=== PATIENT | male | born 1960 | race Caucasian/White ===

== ENCOUNTER 2017-09-09 01:39 | Inpatient (IN) | payer OTHER ==
[~2017-09-09] VITALS: Ht 177.8 cm; Wt 68.0 kg
--- NOTE | 2017-09-09 07:55 | NUR ---
PRE ADMISSION NOTE PATIENT IS A 57 YR OLD MALE ADMITTED TO [facility] ON 09/09/17 TO DETOX FROM ALCOHOL. VS BP 161/91, HR 50, O2 SATS 99% T 98 PATIENT APPEARS ANXIOUS BUT COOPERATIVE WITH A SAD DEPRESSED AFFECT. PATIENT DOES NOT APPEAR INTOXICATED. WILL CONTINUE ASSESSMENT WHEN PATIENT IS ON THE FLOOR.
[2017-09-09 09:00] VITALS: BP 132/83
--- NOTE | 2017-09-09 09:00 | NUR ---
ADMISSION ASSESSMENT PATIENT IS A 57 YEAR OLD MALE ADMITTED TO [facility] ON 09/09/17 FOR A MEDICALLY SUPERVISED WITHDRAWAL FROM ALCOHOL. PATIENT HAS NO ALLERGIES, REGULAR DIET, HEIGHT IS 5'10" AND WEIGHT 150LBS ON STANDING SCALE. PATIENT WISHES TO BE FULL CODE. SKIN IS INTACT UPON INSPECTION. PATIENT REPORTS NO PERTINENT MEDICAL HISTORY, AND STATES HE DOES NOT HAVE A PCP AT THIS TIME. 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 HE DOES NOT SMOKE OR USE ILLICIT SUBSTANCES. PATIENT IS ALERT AND ORIENTED X4 WITH STEADY GAIT AND SPEECH IS SOFT. HIS AFFECT IS WORRIED AND ANXIOUS AND HE IS DIAPHORETIC WITH SLIGHT HAND TREMORS. PATIENT APPEARS MILDLY INTOXICATED UPON ADMISSION WITH A SMELL OF ALCOHOL PERMEATING FROM HIM. ADMITTING CIWA 11. HISTORY OF USE : ALCOHOL ( WINE ) 1-2 BOTTLE /DAY ( 750-1500ML ) DAILY FOR THE PAST 4 WEEKS LAST CONSUMED LAST NIGHT ( 2 BOTTLES 09/08/17. PATIENT STATES HE HAS BEEN DRINKING SINCE HIGH SCHOOL ( 32 YEARS ) BUT IT HAS GOTTEN WORSE THIS PAST YEAR AFTER HIS SON GRADUATED COLLEGE AND LEFT HOME. HE ALSO STATES HE GOT A DUI ON August WHICH HAS PROMPTED HIM TO SEEK HELP HERE AND NOW. PATIENT STATES " I AM HERE TO GET HELP WITH MY DRINKING, I NEED TO LEARN COPING SKILLS." PATIENT STATES HE HAS NEVER HAD MUCH OF A PERIOD OF SOBRIETY , MAYBE A COUPLE OF WEEKS AT LENT SOME YEARS. PATIENT STATES THAT WITHDRAWAL SYMPTOMS INCLUDED EXTREME CRAVINGS AND HAND TREMORS. PATIENT STATES THAT HIS IS A GREAT SUPPORT SYSTEM FOR HIM AND IS VERY ENCOURAGING AND WANTS HIM TO GET TREATMENT. PATIENT STATES HE HAS NEVER OVERDOSED, NEVER HAD A HISTORY OF SI/HI. PATIENT STATES HE WANTS TO GO ON TO A 30 DAY TREATMENT CENTER AFTER COMPLETING DETOX. PATIENT STATES THAT THE CONSEQUENCES TO GETTING A DUI FORCED HIM INTO THE REALITY OF THE SITUATION AHEAD AND NOW WAS THE TIME TO GET SOBER.
[2017-09-09] MEDS ORDERED: ACETAMINOPHEN 325 MG TABLET PO PRN (09:15)
[2017-09-09] MEDS ORDERED: ONDANSETRON ODT 4 MG TAB.RAPDIS SL PRN (09:15)
[2017-09-09] MEDS ORDERED: IBUPROFEN 400 MG TABLET PO PRN (09:15)
[2017-09-09] MEDS ORDERED: LOPERAMIDE HCL 2 MG CAPSULE PO PRN ×2 (09:15)
[2017-09-09] MEDS ORDERED: THIAMINE HCL 200 MG/2 ML VIAL IM ONE (09:15)
[2017-09-09] MEDS ORDERED: MAGNESIUM HYDROXIDE 30 ML LIQUID UDC PO PRN (09:15)
[2017-09-09] MEDS ORDERED: MAG HYDROX/AL HYDROX/SIMETH 30 ML LIQUID UDC PO PRN (09:15)
[2017-09-09] MEDS ORDERED: CLONIDINE HCL 0.1 MG TABLET PO PRN (09:15)
[2017-09-09] MEDS ORDERED: ONDANSETRON 4 MG/2 ML VIAL IM PRN (09:15)
[2017-09-09] MEDS ORDERED: MIRALAX 17 GM POWD.PACK PO PRN (09:15)
[2017-09-09] MEDS ORDERED: LORAZEPAM 1 MG TABLET PO PRN ×2 (09:15)
[2017-09-09] MEDS ORDERED: LORAZEPAM 2 MG/1 ML VIAL IM PRN (09:15)
[2017-09-09] MEDS ORDERED: ALBU18HF2 INH (09:19)
[2017-09-09] MEDS ORDERED: PRED5DRO16 EACHEYE (09:19)
[2017-09-09] MEDS ORDERED: NAPH10DR OP (09:19)
[2017-09-09] MEDS ORDERED: ASPI81TA31 PO (09:19)
[2017-09-09] MEDS ORDERED: [UNRECOGNIZED DRUG - CODE] OP (09:19)
[2017-09-09 09:20] LABS: *AMPHETAMINE, URINE NEGATIVE (NEGATIVE); *BARBITURATE, URINE NEGATIVE (NEGATIVE); *CANNABINOID, URINE NEGATIVE (NEGATIVE); *COCCAINE, URINE NEGATIVE (NEGATIVE); *OPIATE, URINE NEGATIVE (NEGATIVE); *PHENCYCLIDINE SCREEN,URINE NEGATIVE (NEGATIVE)
[2017-09-09] MEDS ORDERED: THIAMINE HCL 100 MG TABLET PO ONE (09:30)
[2017-09-09] MEDS ORDERED: PHENIRAMINE EACHEYE PRN (10:30)
[2017-09-09] MEDS ORDERED: PREDNISOLONE 1% EACHEYE PRN (10:30)
[2017-09-09] MEDS ORDERED: NAPHAZOLINE EACHEYE PRN (10:30)
[2017-09-09] MEDS ORDERED: OPTH EACHEYE PRN (10:30)
[2017-09-09] MEDS ORDERED: PATIENT MAY USE OWN MED- MD OK EACHEYE PRN (10:30)
[2017-09-09] MEDS ORDERED: VENTOLIN INH PRN (10:30)
[2017-09-09] MEDS: LORAZEPAM 1 MG TABLET PO SCH ×3 (10:53→20:31)
[2017-09-09 11:39] LABS: BILIRUBIN,TOTAL 0.3 mg/dL (0.2-1.0); CREATININE 1.2 mg/dL (0.6-1.3); MAGNESIUM 2.1 mg/dL (1.8-2.4); POTASSIUM 4.4 mmol/L (3.5-5.1); TOTAL PROTEIN, SERUM 7.9 g/dL (6.4-8.2)
[2017-09-09 11:51] LABS: BASOPHILS % (AUTO) 0.7 % (0.0-2.0); EOSINOPHILS # (AUTO) 0.1 K/uL (0.0-0.7); EOSINOPHILS % (AUTO) 1.4 % (0.0-7.0); HEMATOCRIT 47.7 % (36.7-47.1); HEMOGLOBIN 16.5 g/dL (12.5-16.3); LYMPHOCYTES # (AUTO) 1.4 K/uL (20.0-40.0); LYMPHOCYTES % (AUTO) 22.4 % (20.5-51.5); MEAN CORPUSCULAR HEMOGLOBIN 31.3 uug (23.8-33.4); MEAN CORPUSCULAR HGB CONC 35 g/dL (32.5-36.3); MEAN CORPUSCULAR VOLUME 90.5 fL (73.0-96.2); MONOCYTES # (AUTO) 0.6 K/uL (2.0-10.0); MONOCYTES % (AUTO) 8.7 % (0.0-11.0); NEUTROPHILS # (AUTO) 4.3 K/uL (1.8-8.9); NEUTROPHILS % (AUTO) 66.8 % (38.5-71.5); PLATELET COUNT (AUTO) 199 K/uL (152-348); RED BLOOD CELL COUNT(AUTO) 5.27 MIL/uL (4.06-5.63); WHITE BLOOD COUNT (AUTO) 6.5 K/uL (3.6-10.2)
[2017-09-09 12:00] VITALS: BP 122/86
[2017-09-09 16:00] VITALS: BP 130/89
--- NOTE | 2017-09-09 18:49 | NUR ---
END OF SHIFT : PATIENT IS A 57 YEAR OLD MALE ADMITTED TO [facility] TODAY 09/09/17 FOR A MEDICALLY SUPERVISED DETOX FROM ALCOHOL. MD HAS STARTED PATIENT ON A 5 DAY ATIVAN TAPER TOLERATED WELL. PATIENT DISPLAYS THE FOLLOWING WITHDRAWAL SYMPTOMS : ANXIETY, DIAPHORESIS, RESTLESSNESS, FINE TREMORS, CHILLS AND A SENSE OF PENDING DOOM. PATIENT HAS ISOLATED IN HIS ROOM MOST OF THE DAY BUT SAID HE WILL GO TO THE H&I MEETING THIS EVENING. UA PERFORMED AND LABS DRAWN. FLUID INTAKE THIS SHIFT OF 1500 ML,4 VOIDS AND 0 BM. LAST CIWA 11 @ 1600. CONTINUE TO FOLLOW MD PLAN OF CARE.
--- NOTE | 2017-09-09 19:15 | NUR ---
START OF SHIFT Patient is a 57-year-old male admitted today, 09/09/17 for ETOH (wine) withdrawal. Patient has started a 5-day Ativan taper, tolerating well. Last CIWA was 11 per day shift nurse. Patient did not receive any PRN medications during day shift. Upon assessment, patient is alert and oriented x4, reporting anxiety and a long history of insomnia. Patient appears reserved and quiet, but does verbalize feeling "embarrassed" about recent DUI. Patient appears flushed, diaphoretic, with fine tremors noted. Patient is on fall and seizure precautions, with no reported seizure history. Safety measures in place, side rails up x2, bed locked in low position, call light within reach. Will continue to monitor.
[2017-09-09 20:00] VITALS: BP 123/88
[2017-09-09] MEDS: diphenhydrAMINE 50 MG CAPSULE PO PRN (22:08)
--- NOTE | 2017-09-09 22:08 | NUR ---
PRN BENADRYL Patient reports difficulty sleeping. PRN Benadryl given PO. Safety measures in place, call light within reach. Will monitor for effectiveness.
--- NOTE | 2017-09-09 23:08 | NUR ---
PRN BENADRYL REASSESSMENT Patient is observed resting in bed with eyes closed, breathing even and unlabored. PRN Benadryl effective. Will continue to monitor. Safety measures in place, call light within reach.
[2017-09-10] VITALS: BP 119/79
--- NOTE | 2017-09-10 | NUR ---
CIWA DEFERRED CIWA deferred due to patient sleeping; to be assessed and scored while patient is awake. Patient's respirations are even and unlabored, 16/min. Safety measures in place, side rails up x2, bed locked in low position, call light within reach. Will continue to monitor.
[2017-09-10 04:00] VITALS: BP 124/75
--- NOTE | 2017-09-10 04:00 | NUR ---
CIWA DEFERRED Patient continues to sleep, CIWA deferred again; to be assessed and scored while patient is awake. Patient's respirations are even and unlabored, 16/min. Safety measures in place, side rails up x2, bed locked in low position, call light within reach. Will continue to monitor.
--- NOTE | 2017-09-10 07:00 | NUR ---
END OF SHIFT Patient is a 57-year-old male admitted on 09/09/17 for ETOH (wine) withdrawal. Patient has started a 5-day Ativan taper, tolerating well. Last CIWA was 1. Patient received PRN Benadryl for difficulty sleeping; noted as effective. Patient slept for 9 hours, total intake of 500mL, void x1, stool x0. Patient is on fall and seizure precautions, with no reported seizure history. Safety measures in place, side rails up x2, bed locked in low position, call light within reach. Will endorse to day shift.
--- NOTE | 2017-09-10 07:50 | NUR ---
START OF SHIFT NOTE Received report from night nurse, 57 year old male admitted for ETOH withdrawal. Patient continued with her Ativan taper tolerating well. Per endorsement patient received PRN Benadryl effective per night nurse, last CIWA score 11, slept for 9 hours. Received patient awake, alert and oriented x4, patient appears anxious and agitated, sweats, nauseated educated regarding plan of care and rehab with good verbal understanding. Patient deniers any SI/HI, Patient is alert awake oriented x4. denies any hallucinations. Schedule medications due. Safety measures in place. will continue to monitor.
[2017-09-10 08:00] VITALS: BP 120/75
[2017-09-10] MEDS: MULTIVITAMINS,THERAPEUTIC TABLET PO SCH (08:42)
[2017-09-10] MEDS: LORAZEPAM 1 MG TABLET PO SCH ×4 (08:42→20:55)
[2017-09-10] MEDS: FOLIC ACID 1 MG TABLET PO SCH (08:42)
[2017-09-10] MEDS: THIAMINE HCL 100 MG TABLET PO SCH (08:42)
[2017-09-10] MEDS ORDERED: TUBERCULIN,PURIF.PROT.DERIV. 5 TU/0.1 ML TEST ID ONE (09:00)
[2017-09-10] MEDS ORDERED: PATIENT MAY USE OWN MED- MD OK PO SCH (09:00)
[2017-09-10 12:00] VITALS: BP 135/88
[2017-09-10 16:00] VITALS: BP 122/87
--- NOTE | 2017-09-10 19:05 | NUR ---
END OF SHIFT NOTE Gave report to night nurse, patient admitted for ETOH withdrawal. Patient cont with Ativan taper tolerating well. Patient presented with anxiety, agitation, patient received scheduled medication noted to be effective. Patient compliant with medication and treatment plan. Patient rested in his room most of the time. Patient was encouraged to participates in groups therapy session. Encourage diversional activities to alleviate anxiety. Patient denies any SI/HI. Safety measures in place. Patient endorsed to night nurse in stable condition.
[2017-09-10 20:00] VITALS: BP 116/76
--- NOTE | 2017-09-10 20:30 | NUR ---
START OF SHIFT Pt is a 57 y/o male, admitted for ETOH withdrawal.NKA,on full code status and regular diet. Pt continues with Ativan taper and is tolerating well. Pt received resting in bed;a/o x 4;presented with mild anxiety and agitation,pleasant on approach. Pt is compliant with medication and treatment plan. Encouraged to get out of bed and interact with peers. Patient denies any SI/HI. Safety measures in place,call light is within reach. Will continue to monitor.
[2017-09-11] VITALS: BP 127/74
--- NOTE | 2017-09-11 | NUR ---
CIWA DEFERRED PT IS SLEEPING COMFORTABLY IN HIS BED.UNABLE TO ASSESS FOR CIWA DUE TO BEING ASLEEP.ALL SAFETY MEASURES ARE IN PLACE,CALL LIGHT IS WITHIN REACH,WILL CONTINUE TO MONITOR.
[2017-09-11 04:00] VITALS: BP 111/66
--- NOTE | 2017-09-11 04:00 | NUR ---
CIWA DEFERRED PT REMAINS SLEEPING COMFORTABLY IN HIS BED.UNABLE TO ASSESS FOR CIWA DUE TO BEING ASLEEP.ALL SAFETY MEASURES ARE IN PLACE,CALL LIGHT IS WITHIN REACH,WILL CONTINUE TO MONITOR.
--- NOTE | 2017-09-11 06:42 | NUR ---
END OF SHIFT Pt is a 57 y/o male, admitted for ETOH withdrawal.NKA,on full code status and regular diet. Pt continues with Ativan taper and is tolerating well. Pt is compliant with medication and treatment plan. No PRN meds given last night.Pt slept 8 hrs,fluid intake was 1000 mls,voided x 5,had B/M x 1 .No c/o pain noted. Patient denies any SI/HI.Last CIWA = 6.Safety measures in place,call light is within reach. Will continue to monitor.
--- NOTE | 2017-09-11 07:45 | NUR ---
START OF SHIFT NOTE Received report from night nurse, 57 year old male admitted for ETOH withdrawal. Patient continued with her Ativan taper tolerating well. Per endorsement patient did not receive any PRN'S, last CIWA score 6, slept for 8 hours. Received patient awake, alert and oriented x4, patient appears anxious and agitated, sweats, Schedule medications due. Educated regarding plan of care and rehab with good verbal understanding. Patient deniers any SI/HI, Patient is alert awake oriented x4. denies any hallucinations. Safety measures in place. will continue to monitor.
[2017-09-11 08:00] VITALS: BP 103/70
[2017-09-11 08:06] LABS: HEPATITIS B SURFACE AG Negative (Negative)
[2017-09-11] MEDS: FOLIC ACID 1 MG TABLET PO SCH (08:26)
[2017-09-11] MEDS: MULTIVITAMINS,THERAPEUTIC TABLET PO SCH (08:26)
[2017-09-11] MEDS: THIAMINE HCL 100 MG TABLET PO SCH (08:26)
[2017-09-11] MEDS ORDERED: LORAZEPAM 1 MG TABLET PO SCH (09:00)
--- NOTE | 2017-09-11 10:35 | NUR ---
Therapist prompted client about group times. Client stated he would attend all groups today.
[2017-09-11 12:00] VITALS: BP 119/80
[2017-09-11 16:00] VITALS: BP 116/86
--- NOTE | 2017-09-11 19:14 | NUR ---
END OF SHIFT NOTE Gave report to night nurse, patient admitted for ETOH withdrawal. Patient completed his Ativan taper tolerated well. Patient presented with anxiety, agitation, patient received scheduled medication noted to be effective.During shift patient did not receive any PRN. Patient compliant with medication and treatment plan. Patient rested in his room most of the time. Patient was encouraged to participates in groups therapy session. Encourage diversional activities to alleviate anxiety. Patient denies any SI/HI. Safety measures in place. Patient endorsed to night nurse in stable condition.
--- NOTE | 2017-09-11 19:15 | NUR ---
Start of Shift Notes: Report received from day shift nurse. Per day shift nurse, last CIWA was 5 at 1600. Upon start of shift pt was in room watching TV. Pts room is unkempt and has water bottles all over the table and drawer, otherwise pt appears clean. Pts expression is anxious regarding his discharge for tomorrow. Pt requested for sleep medication later during the shift so he can get a good nights sleep. During assessment, pt is AOx3. Pt has no complaints at this time. Pt has completed a modified Ativan taper to manage withdrawal symptoms. Bed in lowest position. Side rails up x2. Call light functioning and within reach. All needs attended and met. Will continue to monitor.
[2017-09-11 20:00] VITALS: BP 118/78
[2017-09-11] MEDS: diphenhydrAMINE 50 MG CAPSULE PO PRN (21:05)
--- NOTE | 2017-09-11 21:05 | NUR ---
PRN Benadryl: Pt requested for sleep medication. PRN Benadryl given as ordered.
--- NOTE | 2017-09-12 07:30 | NUR ---
START OF SHIFT Received report from ordnance engineer nurse. Pt is in bed watching TV. He is a 57 yo male admitted to [facility] on 09/09 for ETOH Dependence. He is A&O and ambulatory. Ativan taper completed and he is scheduled for discharge today. Pt states that he slept well last night and is looking forward to moving on to the next step his recovery although he is somewhat nervous. Provided support and encouragement. He denies s/s of withdrawal. Fall and seizure precautions in place. Bed is down with call light in reach.
[2017-09-12 08:00] VITALS: BP 118/75
[2017-09-12] MEDS: FOLIC ACID 1 MG TABLET PO SCH (08:08)
[2017-09-12] MEDS: MULTIVITAMINS,THERAPEUTIC TABLET PO SCH (08:09)
[2017-09-12] MEDS: THIAMINE HCL 100 MG TABLET PO SCH (08:09)
[2017-09-12] MEDS ORDERED: LORAZEPAM 1 MG TABLET PO SCH (09:00)
--- NOTE | 2017-09-12 09:30 | NUR ---
DISCHARGE NOTE Pt discharged in stable condition. Vitals are WNL. Pt is A&O x4 and skin is intact. He denies any SI/HI. All discharge paperwork completed, dated, and signed. Pt educated regarding discharge instructions, what to do after discharge, and when to contact MD. Pt verbalized understanding. He was provided will all of his discharge paperwork. Last CIWA was 1. Pt was discharged from [facility] on 09/12/17 at 0925. He left the building with all of his belongings and medications. MD is aware.
[2017-09-13] MEDS ORDERED: LORAZEPAM 1 MG TABLET PO SCH (09:00)
== END 2017-09-12 09:25 | DRG 895 ==
LOC: SRC 07:19
PROVIDERS: ADMIT Internal Medicine; ATTEND Internal Medicine
PROC: HZ2ZZZZ Detoxification Services for Substance Abuse Treatment (ICD-10-PCS; principal; 2017-09-09)
PROC: HZ31ZZZ Individual Counseling for Substance Abuse Treatment, Behavioral (ICD-10-PCS; 2017-09-11)
PROC: HZ41ZZZ Group Counseling for Substance Abuse Treatment, Behavioral (ICD-10-PCS; 2017-09-11)
DX: F10.239 Alcohol dependence with withdrawal, unspecified (principal); E86.0 Dehydration; F13.239 Sedative, hypnotic or anxiolytic dependence with withdrawal, unspecified; Y90.0 Blood alcohol level of less than 20 mg/100 ml; F41.9 Anxiety disorder, unspecified; G47.00 Insomnia, unspecified; J45.20 Mild intermittent asthma, uncomplicated; Z65.3 Problems related to other legal circumstances; Z81.1 Family history of alcohol abuse and dependence; Z20.5 Contact with and (suspected) exposure to viral hepatitis
CPT/HCPCS: 36415; 70030-TC; 80307; 83735; 85025; 86580; 86592; 86705; 86803; 87340; G0480; Q0163